=== PATIENT | male | born 2000 | race African-American/Black ===

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

== ENCOUNTER 2022-12-02 18:47 | Emergency (ER) | payer SELFPAY ==
[2022-12-02] MEDS ORDERED: Sodium Chloride 0.9% 1,000 ML ONE (19:57)
[2022-12-02 20:01] LABS: #Basophils 0.1 thou/uL (0.0-0.2); #Lymphocytes 2.1 thou/uL (1.20-3.40); #Monocytes 0.5 thou/uL (0.11-0.59); %Basophils 1.6 % (0.0-1.0); %Eosinophils 0.5 % (0.0-10.0); %Lymphocytes 36.9 % (28.0-48.0); %Monocytes 7.9 % (0.0-4.0); %Neutrophils 53.2 % (31.0-61.0); Hematocrit 41.7 % (42.0-52.0); Hemoglobin 13.4 g/dL (14.0-18.0); Mean Corpuscular Hemoglobin 30.1 pg (25.0-35.0); Mean Platelet Volume 7.5 fL (7.4-10.4); Platelet Count 277 10x3/uL (130-400); Red Blood Cell (RBC) Count 4.43 mill/uL (4.00-5.20); White Blood Cell (WBC) Count 5.7 10x3/uL (4.8-10.8)
[2022-12-02 20:38] LABS: ALT (SGPT) 17 U/L (8-55); AST (SGOT) 26 U/L (5-34); Albumin 4.4 g/dL (3.5-5.0); Alkaline Phosphatase 58 U/L (50-130); Anion Gap 12 mmol/L (10-20); BUN (Urea Nitrogen) 13 mg/dL (8.9-20.6); Bilirubin, Total 0.4 mg/dL (0.2-1.2); Calc. Creatinine Clearance 0 mL/min (70-130); Calcium 9.5 mg/dL (7.8-10.44); Carbon Dioxide 28 mmol/L (22-29); Chloride 101 mmol/L (98-107); Estimated GFR 77; Globulin 2.7 g/dL (2.4-3.5); Glucose 79 mg/dL (70-105); Potassium 3.6 mmol/L (3.5-5.1); Protein, Total 7.1 g/dL (6.0-8.3); Sodium 137 mmol/L (136-145)
[2022-12-02 20:54] LABS: Bilirubin Negative (Negative); Blood, Urine Negative (Negative); Clarity Clear (Clear); Glucose, Urine (Dipstick) Negative (Negative); Ketone, Urine Negative (Negative); Leukocyte Negative (Negative); Nitrite Negative (Negative); Protein, Urine (Dipstick) 30 mg/dL (Neg-Trace)
[2022-12-02 21:00] LABS: Specific Gravity, Urine 1.031 (1.005-1.030)
[2022-12-02 21:01] LABS: CAUTI Indications for Culture Pelvic or flank pain; Mucous/LPF 1+ LPF (<2+); RBC/HPF 0-3 HPF (0-3); Squamous Epithelial 0-3 HPF (0-3); WBC/HPF 0-3 HPF (0-3)
[2022-12-02 21:02] LABS: Urine Culture Reflex No No
== END 2022-12-02 21:15 | disposition home or self-care (01) ==
LOC: NAV ERS 18:47
DX: R10.30 Lower abdominal pain, unspecified (principal); R10.815 Periumbilic abdominal tenderness
CPT/HCPCS: 74176; 80053; 81001; 85025; 96360; J7050

== ENCOUNTER 2023-12-07 21:32 | Emergency (ER) | payer OTHER, SELFPAY ==
[2023-12-07 21:56] LABS: #Basophils 0.2 thou/uL (0.0-0.2); #Eosinphils 0.1 thou/uL (0.0-0.7); #Lymphocytes 3.8 thou/uL (1.20-3.40); #Monocytes 0.9 thou/uL (0.11-0.59); #Neutrophils 3.4 thou/uL (1.40-6.50); %Basophils 2.6 % (0.0-1.0); %Eosinophils 1.7 % (0.0-10.0); %Lymphocytes 44.9 % (21.0-51.0); %Monocytes 10.7 % (0.0-10.0); %Neutrophils 40.1 % (42.0-75.0); Hematocrit 40.8 % (42.0-52.0); Hemoglobin 13.5 g/dL (14.0-18.0); Mean Corpuscular Hemoglobin 30.9 pg (27.0-31.0); Mean Corpuscular Volume 93.7 fl (78.0-98.0); Mean Platelet Volume 6.8 fL (7.4-10.4); Platelet Count 361 10x3/uL (130-400); RBC Distribution Width 12.3 % (11.5-14.5); Red Blood Cell (RBC) Count 4.36 mill/uL (4.70-6.10); White Blood Cell (WBC) Count 8.4 10x3/uL (4.8-10.8)
[2023-12-07] MEDS ORDERED: fentaNYL 50 mcg/mL 1 mL Vial ONE ×3 (22:11→23:40)
[2023-12-07 22:18] LABS: ALT (SGPT) 15 U/L (8-55); AST (SGOT) 24 U/L (5-34); Albumin 4.1 g/dL (3.5-5.0); Alkaline Phosphatase 53 U/L (40-110); Anion Gap 23 mmol/L (10-20); BUN (Urea Nitrogen) 13 mg/dL (8.9-20.6); Bilirubin, Total 0.3 mg/dL (0.2-1.2); Calc. Creatinine Clearance 0 mL/min (70-130); Calcium 9.1 mg/dL (7.8-10.44); Carbon Dioxide 15 mmol/L (22-29); Chloride 106 mmol/L (98-107); Estimated GFR 79; Globulin 2.8 g/dL (2.4-3.5); Glucose 121 mg/dL (70-105); Potassium 3.7 mmol/L (3.5-5.1); Protein, Total 6.9 g/dL (6.0-8.3); Sodium 140 mmol/L (136-145)
[2023-12-07 22:27] LABS: Critical Call Chem-Lactate 2222@NAV.CM12
[2023-12-07 22:37] LABS: INR-International Normal Ratio 1.1; Prothrombin Time 13.8 sec (12.0-14.7)
[2023-12-07 22:46] LABS: PTT 20.6 sec (22.9-36.1)
[2023-12-07 23:04] LABS: Bilirubin Negative (Negative); Blood, Urine Small (Negative); Clarity Clear (Clear); Glucose, Urine (Dipstick) Negative (Negative); Ketone, Urine Negative (Negative); Leukocyte Negative (Negative); Nitrite Negative (Negative); Protein, Urine (Dipstick) Negative (Neg-Trace); pH, Urine 6.5 (5.0-9.0)
[2023-12-07 23:09] LABS: Bacteria/HPF Rare-Few HPF (None Seen); WBC/HPF 0-3 HPF (0-3)
[2023-12-07] MEDS ORDERED: cefTRIAXone (ROCEPHIN) 1 GM VIAL ONE (23:40)
[2023-12-07] MEDS ORDERED: Boostrix 0.5 ML (Tdap) VIAL (>/=7 yrs of age) ONE (23:41)
[2023-12-07] MEDS ORDERED: Sodium Chloride 0.9% 250 ML 250 ML ONE (23:41)
[2023-12-07] MEDS ORDERED: Sodium Chloride 0.9% 100 ML ONE (23:41)
== END 2023-12-08 00:15 | disposition short-term general hospital (02) ==
LOC: NAV ERS 21:32
DX: S56.921A Laceration of unspecified muscles, fascia and tendons at forearm level, right arm, initial encounter (principal); T82.838A Hemorrhage due to vascular prosthetic devices, implants and grafts, initial encounter; W26.8XXA Contact with other sharp object(s), not elsewhere classified, initial encounter
CPT/HCPCS: 36415; 80053; 81001; 83605; 85025; 85610; 85730; 86850; 86900; 86901; 90471; 90715; 96360; 96361; 96365; 96375; 96376; J0696; J3010; J7050

== ENCOUNTER 2023-12-11 15:11 | Emergency (ER) | payer SELFPAY | END 2023-12-11 16:31 | disposition home or self-care (01) | LOC: NAV ERS 15:11 | DX: M79.89 Other specified soft tissue disorders (principal); Z48.01 Encounter for change or removal of surgical wound dressing | CPT/HCPCS: 99283 ==

== ENCOUNTER 2024-03-06 20:07 | Emergency (ER) | payer SELFPAY ==
[2024-03-06] MEDS ORDERED: Tetracaine 0.5% PF 4 ML BOT ONE (20:11)
[2024-03-06] MEDS ORDERED: Fluorescein Opthalmic Strip ONE (20:11)
== END 2024-03-06 20:49 | disposition home or self-care (01) ==
LOC: NAV ERS 20:07
DX: H57.8A2 Foreign body sensation, left eye (principal); F17.210 Nicotine dependence, cigarettes, uncomplicated
CPT/HCPCS: 99283

== ENCOUNTER 2024-03-26 20:31 | Emergency (ER) | payer SELFPAY | END 2024-03-26 20:54 | disposition home or self-care (01) | LOC: NAV ERS 20:31 | DX: M79.631 Pain in right forearm (principal); F17.210 Nicotine dependence, cigarettes, uncomplicated | CPT/HCPCS: 99283 ==

== ENCOUNTER 2024-10-25 20:09 | Emergency (ER) | payer SELFPAY | END 2024-10-25 20:38 | disposition home or self-care (01) | LOC: NAV ERS 20:09 | DX: B34.9 Viral infection, unspecified (principal); F17.210 Nicotine dependence, cigarettes, uncomplicated | CPT/HCPCS: 99283 ==

== ENCOUNTER 2024-12-24 21:04 | Emergency (ER) | payer SELFPAY | END 2024-12-24 21:51 | disposition home or self-care (01) | LOC: NAV ERS 21:04 | DX: R20.2 Paresthesia of skin (principal); F17.210 Nicotine dependence, cigarettes, uncomplicated | CPT/HCPCS: 99283 ==